=== PATIENT | female | born 1930 | race Caucasian/White ===

== ENCOUNTER 2021-06-04 15:52 | Inpatient (IN) | payer MEDICARE ==
[~2021-06-04] VITALS: Ht 165.1 cm; Wt 46.3 kg
[2021-06-04 16:14] LABS: HEMATOCRIT 40.1 % (37.0-47.0); HEMOGLOBIN 13.3 gm/dL (12.0-15.0); MCH 29.6 pg (26.0-34.0); MCHC 33.1 g/dL (28.0-37.0); MCV 89.5 fL (80.0-100.0); RBC 4.48 mil/uL (4.20-5.00); RDW 14.6 % (10.5-14.5); WBC 7.7 thou/uL (4.0-11.0)
[2021-06-04 16:27] LABS: CALCIUM 9.5 mg/dL (8.5-10.1); POTASSIUM 3.6 mmol/L (3.5-5.1)
[2021-06-04 16:38] LABS: ALBUMIN 3.4 g/dL (3.4-5.0); TOTAL BILIRUBIN 0.5 mg/dL (0.2-1.0); TOTAL PROTEIN 7.6 g/dL (6.4-8.2)
[2021-06-04 16:41] LABS: URINE BILIRUBIN NEGATIVE (Negative); URINE BLOOD 3+ (Negative); URINE CLARITY SL CLOUDY; URINE COLOR YELLOW; URINE GLUCOSE-RANDOM* NEGATIVE (Negative); URINE KETONES NEGATIVE (Negative); URINE PROTEIN (DIPSTICK) 1+ (Negative); URINE SPECIFIC GRAVITY 1.025 (1.005-1.035); URINE UROBILINOGEN 0.2 E.U./dl (0.2-1.0)
[2021-06-04 16:52] LABS: URINE LEUKOCYTES-REFLEX 3+ (Negative); URINE NITRITE-REFLEX POSITIVE (Negative)
[2021-06-04 17:20] LABS: SQUAMOUS 0-3 Few /LPF (0-3)
[2021-06-04 17:21] LABS: BACTERIA-REFLEX >30 Many /HPF (None Seen); CASTS None Seen /LPF (None Seen); CRYSTALS None Seen /LPF (None Seen); URINE WBC-REFLEX >25 Many /HPF (0-5)
[2021-06-04] MEDS ORDERED: ROSUVASTATIN CAL5 MG PO (22:16)
[2021-06-04] MEDS ORDERED: HYDROCHLOROTHIA25 M1 PO (22:16)
[2021-06-04] MEDS ORDERED: ARTHRITIS PAIN100 GM TOP (22:17)
[2021-06-04] MEDS ORDERED: AZITHROMYCIN 2250 MG PO (22:17)
[2021-06-04 22:18] VITALS: BP 132/74
[2021-06-04 22:29] VITALS: BP 132/74
[2021-06-04 23:41] VITALS: BP 123/69
--- NOTE | 2021-06-05 01:25 | NUR ---
PT ADMITTED TO VIA ED, ARRIVED TO UNIT VIA CART AT APPROXIMATELY 2320. PER REPORT FROM ED, PT TESTED POSITIVE FOR COVID-19 AT HER [facility]IST[facility] ON 06/03, AND WAS SENT TO THE ED DUE TO CONCERN REGARDING HER O2 SATS ON ROOM AIR. SHE HAS BEEN SATTING >95% ON ROOM AIR SINCE ADMISSION. ADMISSION ASSESSMENTS COMPLETE, TOMATO GRADER IN PLACE. PT IS OCCASIONALLY INCONTINENT OF B&B, ARRIVED TO UNIT INCONTINENT OF BLADDER. BRIEF CHANGED AND KELLIE CARE PROVIDED. NO SKIN BREAKDOWN NOTED. WILL CONTINUE TO OBSERVE FOR CHANGES.
[2021-06-05 02:43] LABS: HEMATOCRIT 37.3 % (37.0-47.0); HEMOGLOBIN 12.4 gm/dL (12.0-15.0); MCH 29.9 pg (26.0-34.0); MCHC 33.2 g/dL (28.0-37.0); RBC 4.15 mil/uL (4.20-5.00); RDW 14.4 % (10.5-14.5); WBC 7.3 thou/uL (4.0-11.0)
[2021-06-05 03:04] LABS: ALBUMIN 3.2 g/dL (3.4-5.0); CALCIUM 8.8 mg/dL (8.5-10.1); CREATININE 0.9 mg/dL (0.6-1.0); POTASSIUM 3.3 mmol/L (3.5-5.1); TOTAL BILIRUBIN 0.4 mg/dL (0.2-1.0); TOTAL PROTEIN 6.4 g/dL (6.4-8.2)
[2021-06-05 04:05] VITALS: BP 113/85
[2021-06-05 08:47] VITALS: BP 117/71
[2021-06-05 11:33] VITALS: BP 101/61
[2021-06-05 14:07] VITALS: BP 133/68
[2021-06-05 15:32] VITALS: BP 107/68
--- NOTE | 2021-06-05 18:07 | NUR ---
assumed care of pt at 0700. pt aox2 pleasant no acute distress, voicing no particular concerns or complaints. iv abx infusing per order. up w/ assist to bsc. small appetite. vitals stable. no events on telemetry. spoke with son regarding pt status.
[2021-06-05 20:40] VITALS: BP 133/79
[2021-06-06 04:20] VITALS: BP 115/63
--- NOTE | 2021-06-06 07:38 | NUR ---
Pt. slept well during the night. She is pleasantly confused. Cont. on enhanced precaution,afebrile. Tolerating room air well. Incontinent of bladder then up with assist to commode to void at times. Bed alarm on for safety.Making some progress towards care plan goals.
[2021-06-06 08:33] VITALS: BP 120/66
[2021-06-06 11:15] VITALS: BP 110/62
[2021-06-06 16:47] VITALS: BP 102/59
--- NOTE | 2021-06-06 18:30 | NUR ---
PATIENT IS ALERT AND ORIENTED X2 THIS SHIFT (PERSON AND PLACE). SHE IS ON ROOM AIR IN THE 90'S. HER LUNG SOUNDS ARE CLEAR BUT DIMINISHED. SHE IS ON CCT AND IS NSR. PATIENT HAS EPISODES OF INCONTINENCE BUT GETS UP TO TOILET WITH A GAITBELT AND SHE USES THE COMMODE. PATIENT HAS PERIODS OF IMPULSIVENESS WHERE SHE JUMPS OUT OF BED BUT IS EASILY REDIRECTED. PATIENTS LAST BM WAS ON 06/05/21. SHE HAS AN IV IN HER RIGHT AC THAT IS SALINE LOCKED AND PATENT.
[2021-06-06 18:56] VITALS: BP 120/74
[2021-06-07 05:15] VITALS: BP 117/66
--- NOTE | 2021-06-07 05:51 | NUR ---
Patient progressing well towardsoutcome goals. Oxygenation optimal on room air. Vital signs and rhythm stable. Denies pain. High fall risks, fall precautions in place. Enhanced isolation. No respiratory symptoms.
[2021-06-07 07:11] VITALS: BP 114/67
--- NOTE | 2021-06-07 07:32 | EKG ---
[facility] [place] [address] ELECTROCARDIOGRAM REPORT Name: VERNON GERMAN Room #: 351- ADM IN M.R.#: [id number] Admission: 06/04/21 Attend Phys: Al Graf Discharge: Date of : [birth year] Report #: [id number] [facility] ED Test Date: 2021-06-04 Test Time: 17:32:55 Pat Name: VERNON GERMAN Department: Room: [facility] Gender: [employer] Maintainer: alex mosher : 1930 Requested By: Danette Mitchell Order Number: [id number] MD: Mauro Verdugo Measurements Intervals [place] Rate: 79 P: 70 TX: 191 QRS: -49 QRSD: 85 T: 18 QT: 390 QTc: 448 Interpretive Statements Sinus rhythm Atrial premature complexes Inferior infarct, old Lateral leads are also involved No previous ECG available for comparison Electronically Signed On 06-07-2021 7:32:27 LCSW by Mauro Verdugo [email or web address] <ELECTRONICALLY SIGNED> By: Mauro Verdugo MD, [facility] 06/07/21 0732 [id number] Mauro Verdugo MD, FACC /EPI
[2021-06-07] MEDS ORDERED: DECADRON6 MG PO (09:50)
[2021-06-07] MEDS ORDERED: AUGMENTIN 875-1 EACH PO (09:50)
[2021-06-07] MEDS ORDERED: ASPIRIN EC325 M1 PO (09:51)
[2021-06-07 11:20] VITALS: BP 100/59
[2021-06-07 13:14] VITALS: BP 100/59
--- NOTE | 2021-06-07 13:31 | NUR ---
INITIAL ASSESSMENT/DISCHARGE NOTE: SUKHDEEP reviewed chart and spoke with nursing and attending physician. Pt was admitted from [facility] due to hypoxia. Pt placed in Enhanced Isolation. Pt had tested positive for COVID on 06/03. Pt has received the [employer] COVID vaccination. Pt is afebrile and not requiring O2. Pt is medically stable to discharge back to [facility] today with HH services. SUKHDEEP spoke with Jesenia, executive director of marketing at [facility], to provide update and notify of discharge. Jesenia confirms they are able to accept pt back today. [facility] is onsite. [facility] does not have transportation available today. SUKHDEEP arranged w/c van transportation through [employer] for [id number]. SUKHDEEP notified Director of Case Mgmt of transportation arrangements. SUKHDEEP spoke with pt's son, Linwood, via phone. Introduced role of SUKHDEEP and notified of pt's discharge. Linwood is agreeable with discharge plan. Pt lives in an [place] apt and has a cane and walker to use as needed. Pt's PCP is Dr. Brennon Garcia. SUKHDEEP discussed HH services. SUKHDEEP faxed HH referral and discharge ppwk to [facility]. Notified HH liaison, Lurdes, of new referral. [facility] to coordinate pt's HH visits. Contact info for HH placed in pt's discharge summary. SUKHDEEP faxed info and d/c ppwk to [facility]. Received fax confirmation. SUKHDEEP updated pt's nurse. No additional SW needs identified at this time, but is available to assist should needs arise.
[2021-06-07 16:07] VITALS: BP 124/73
--- NOTE | 2021-06-07 17:56 | NUR ---
DISCHARGE FOR PT BACK TO [facility]. ALL BELONGINGS PACKED AND WITH PT. IV AND TELE D/C. REPORT CALLED TO [facility], REPORT GIVEN TO NURSE EUGENIO.
== END 2021-06-07 18:00 | disposition home health service (06) | DRG 178 ==
LOC: ER 15:52 → 3W 21:41 → EROBS 21:41 → 3W 22:33
PROVIDERS: Nurse Practitioner Family; ADMIT Hospitalist; ATTEND Hospitalist
DX: U07.1 COVID-19 (principal); N30.01 Acute cystitis with hematuria; Z16.12 Extended spectrum beta lactamase (ESBL) resistance; I10 Essential (primary) hypertension; F03.90 Unspecified dementia, unspecified severity, without behavioral disturbance, psychotic disturbance, mood disturbance, and anxiety; B96.20 Unspecified Escherichia coli [E. coli] as the cause of diseases classified elsewhere; E78.5 Hyperlipidemia, unspecified; Z88.8 Allergy status to other drugs, medicaments and biological substances; Z79.82 Long term (current) use of aspirin; Z79.899 Other long term (current) drug therapy; Z87.442 Personal history of urinary calculi
CPT/HCPCS: 10879